=== PATIENT | female | born 1950 | race African-American/Black ===

== ENCOUNTER 2017-04-27 20:41 | Emergency (ER) | payer MEDICARE ==
[~2017-04-27 20:41] MED LIST: ISOVUE-370 76%-LOCM 1 ML ONE
[2017-04-27] MEDS ORDERED: Ketorolac Tromethamine 30 MG/ML VIAL ONE (21:33)
[2017-04-27 21:54] LABS: #Eosinphils 0.1 thou/uL (0.0-0.7); #Monocytes 0.7 thou/uL (0.11-0.59); #Neutrophils 9.1 thou/uL (1.40-6.50); %Basophils 0.3 % (0.0-1.0); %Eosinophils 0.8 % (0.0-10.0); %Lymphocytes 16.5 % (21.0-51.0); %Monocytes 5.7 % (0.0-10.0); Hematocrit 45.4 % (36.0-47.0); Mean Platelet Volume 7.1 fL (7.4-10.4); Red Blood Cell (RBC) Count 4.55 mill/uL (4.20-5.40); White Blood Cell (WBC) Count 11.9 thou/uL (4.8-10.8)
[2017-04-27 22:04] LABS: PTT 26.7 SEC (22.9-36.1); Prothrombin Time 12.6 SEC (12.0-14.7)
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
[2017-04-27 22:12] LABS: Lactic Acid - Sepsis 2.6 mmol/L (0.5-2.2)
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
[2017-04-27 22:15] LABS: ALT (SGPT) 19 U/L (8-55); AST (SGOT) 32 U/L (5-34); Alkaline Phosphatase 95 U/L (40-150); Anion Gap 14 mmol/L (10-20); BUN (Urea Nitrogen) 10 mg/dL (9.8-20.1); Bilirubin, Total 0.5 mg/dL (0.2-1.2); CK (CPK) 244 U/L (29-168); Calc. Creatinine Clearance 0 mL/min (70-130); Calcium 9.9 mg/dL (7.8-10.44); Carbon Dioxide 25 mmol/L (23-31); Chloride 104 mmol/L (98-107); Estimated GFR-MDRD Greater than 90; Globulin 3.7 g/dL (2.4-3.5); Lipase 6 U/L (8-78); Protein, Total 7.7 g/dL (6.0-8.3)
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
== END 2017-04-27 23:12 | disposition home or self-care (01) ==
LOC: ERS 20:41
DX: S20.212A Contusion of left front wall of thorax, initial encounter (principal); S80.11XA Contusion of right lower leg, initial encounter; S50.812A Abrasion of left forearm, initial encounter; E78.5 Hyperlipidemia, unspecified; I10 Essential (primary) hypertension; F32.9 Major depressive disorder, single episode, unspecified; V43.52XA Car driver injured in collision with other type car in traffic accident, initial encounter; W22.11XA Striking against or struck by driver side automobile airbag, initial encounter
CPT/HCPCS: 71010; 71260; 72170; 74177; 80053; 82550; 83605; 83690; 85025; 85610; 85730; 93005; 96374; J1885

== ENCOUNTER 2017-11-10 09:50 | Outpatient (CLI) | payer MEDICARE, OTHER ==
--- NOTE | 2017-11-16 13:12 | MMO ---
BILATERAL SCREENING MAMMOGRAM: INDICATIONS: Annual exam. COMPARISON: 11/25/2015 FINDINGS: The interpretation of this examination was assisted with computer aided detection. The breast parenchyma is heterogeneously dense. There has been interval placement of a pacemaker generator in the upper inner aspect of the left rogelio st, slightly limiting evaluation of the breast parenchyma within this region. There are benign appea ring calcifications bilaterally. No suspicious mass, cluster of microcalcification, or area of architectural distortion is evident. IMPRESSION: BI-RADS Category 2: Benign. Recommend routine annual mammographic screening. POS: [facility]
== END 2017-11-10 09:51 | disposition home or self-care (01) ==
LOC: SCSMAMMO 09:50
PROVIDERS: ATTEND Internal Medicine
DX: Z12.31 Encounter for screening mammogram for malignant neoplasm of breast (principal)
CPT/HCPCS: 77067

== ENCOUNTER 2017-11-18 08:49 | Outpatient (CLI) | payer MEDICARE, OTHER | END 2017-11-18 08:50 | disposition home or self-care (01) | LOC: BICMAMMO 08:49 | PROVIDERS: ATTEND Internal Medicine | DX: Z13.820 Encounter for screening for osteoporosis (principal); N95.9 Unspecified menopausal and perimenopausal disorder; M85.88 Other specified disorders of bone density and structure, other site | CPT/HCPCS: 77080 ==

== ENCOUNTER 2018-04-02 20:30 | Outpatient (CLI) | payer MEDICARE, OTHER | END 2018-04-02 20:31 | disposition home or self-care (01) | LOC: SLEEPLAB 20:30 | PROVIDERS: ATTEND Internal Medicine Cardiovascular Disease | DX: G47.33 Obstructive sleep apnea (adult) (pediatric) (principal) | CPT/HCPCS: 95810 ==

== ENCOUNTER 2018-04-05 09:06 | Emergency (ER) | payer MEDICARE, OTHER ==
[2018-04-05 09:54] LABS: Bilirubin Negative (Negative); Blood, Urine Moderate (Negative); Clarity Slightly Cloudy (Clear); Glucose, Urine (Dipstick) Negative (Negative); Leukocyte Trace (Negative); Nitrite Negative (Negative); Protein, Urine (Dipstick) Negative (Neg-Trace); Specific Gravity, Urine 1.022 (1.002-1.036); Urobilinogen 0.2 mg/dL (0.2-1.0)
[2018-04-05 10:01] LABS: Bacteria/HPF 2+ HPF (None Seen)
== END 2018-04-05 10:13 | disposition home or self-care (01) ==
LOC: SCSER 09:06
DX: N39.0 Urinary tract infection, site not specified (principal); I10 Essential (primary) hypertension; E78.5 Hyperlipidemia, unspecified; Z79.899 Other long term (current) drug therapy
CPT/HCPCS: 36415; 80053; 80061; 81003; 81015; 99283

== ENCOUNTER 2018-05-07 19:30 | Outpatient (CLI) | payer MEDICARE, OTHER | END 2018-05-07 19:31 | disposition home or self-care (01) | LOC: SLEEPLAB 19:30 | PROVIDERS: ATTEND Internal Medicine Cardiovascular Disease | DX: G47.9 Sleep disorder, unspecified (principal); G47.33 Obstructive sleep apnea (adult) (pediatric); R53.83 Other fatigue; I11.0 Hypertensive heart disease with heart failure; I50.9 Heart failure, unspecified; I25.10 Atherosclerotic heart disease of native coronary artery without angina pectoris; R06.83 Snoring; G47.10 Hypersomnia, unspecified; E66.9 Obesity, unspecified; Z68.30 Body mass index [BMI] 30.0-30.9, adult | CPT/HCPCS: 95811 ==

== ENCOUNTER 2019-03-04 13:38 | Emergency (ER) | payer MEDICARE ==
--- NOTE | 2019-03-04 14:54 | RAD ---
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 Bony demineralization. IMPRESSION: Bony demineralization and prominent tricompartment arthrosis and degenerative changes.
--- NOTE | 2019-03-04 16:51 | ULT ---
VENOUS DOPPLER ULTRASOUND OF THE LEFT LOWER EXTREMITY: History: Left lower extremity pain and edema. Technique: Grayscale, color flow, and spectral doppler imaging of the deep venous system of the left lower extremity was performed. FINDINGS: There is good flow, compression, and augmentation within the left common femoral, femoral, deep femor al, popliteal, posterior tibial and greater saphenous veins. IMPRESSION: No evidence of DVT in the left lower extremity. POS: [facility]
== END 2019-03-04 17:01 | disposition home or self-care (01) ==
LOC: ERS 13:38
DX: M25.562 Pain in left knee (principal); E78.5 Hyperlipidemia, unspecified; E78.00 Pure hypercholesterolemia, unspecified; I10 Essential (primary) hypertension; Z79.82 Long term (current) use of aspirin; Z79.899 Other long term (current) drug therapy

== ENCOUNTER 2019-05-22 21:49 | Observation (INO) | payer MEDICARE ==
[~2019-05-22 21:49] MED LIST changes: -ISOVUE-370 76%-LOCM 1 ML ONE; +Iopamidol-370 76% 500 ML 1 ML ONE
--- NOTE | 2019-05-22 22:23 | RAD ---
EXAM: Chest one view: HISTORY: Chest pain COMPARISON: 04/27/2017 FINDINGS: Left ICD Heart size: Within normal limits. Lungs: Clear of acute process. No evidence for confluent pneumonia, pleural effusion, acute edema, or pneumothorax, or other signifi cant acute process. IMPRESSION: No significant acute intrathoracic disease. Stable exam.
[2019-05-22 23:02] LABS: #Eosinphils 2.2 thou/uL (0.0-0.7); #Lymphocytes 1.5 thou/uL (1.20-3.40); #Monocytes 0.9 thou/uL (0.11-0.59); #Neutrophils 5.8 thou/uL (1.40-6.50); %Basophils 0.3 % (0.0-1.0); %Eosinophils 20.8 % (0.0-10.0); %Lymphocytes 14.2 % (21.0-51.0); %Monocytes 8.9 % (0.0-10.0); %Neutrophils 55.9 % (42.0-75.0); Hemoglobin 14.6 g/dL (12.0-16.0); Mean Corpuscular HGB CONC 32.6 g/dL (32.0-36.0); Mean Corpuscular Hemoglobin 33.1 pg (27.0-31.0); Mean Platelet Volume 7.2 fL (7.4-10.4); Platelet Count 199 thou/uL (130-400); RBC Distribution Width 12.8 % (11.5-14.5); White Blood Cell (WBC) Count 10.4 thou/uL (4.8-10.8)
[2019-05-22 23:25] LABS: ALT (SGPT) 14 U/L (8-55); AST (SGOT) 23 U/L (5-34); Albumin 3.9 g/dL (3.4-4.8); Alkaline Phosphatase 94 U/L (40-110); Anion Gap 11 mmol/L (10-20); BUN (Urea Nitrogen) 14 mg/dL (9.8-20.1); Bilirubin, Total 0.4 mg/dL (0.2-1.2); CK (CPK) 118 U/L (29-168); Calc. Creatinine Clearance 0 mL/min (70-130); Calcium 9.5 mg/dL (7.8-10.44); Carbon Dioxide 27 mmol/L (23-31); Chloride 107 mmol/L (98-107); Estimated GFR-MDRD Greater than 90; Globulin 2.6 g/dL (2.4-3.5); Glucose 104 mg/dL (80-115); Lipase 5 U/L (8-78); Potassium 4.2 mmol/L (3.5-5.1); Protein, Total 6.5 g/dL (6.0-8.3); Sodium 141 mmol/L (136-145)
[2019-05-23] MEDS ORDERED: Aspirin Chewable 81 MG TAB ONE (00:04)
[2019-05-23] MEDS ORDERED: Enoxaparin Sodium 40 MG/0.4 ML SYRINGE ONE (01:24)
[2019-05-23] MEDS ORDERED: Enoxaparin Sodium 30 MG/0.3 ML SYRINGE ONE (01:24)
[2019-05-23 02:29] LABS: Troponin I Less than 0.010 ng/mL (< 0.028)
[2019-05-23] MEDS ORDERED: HYDROcodone/Acetaminophen 5/325 mg Tablet PO PRN (05:39)
[2019-05-23] MEDS ORDERED: hydrALAZINE 20 MG/ML VIAL SLOW IVP PRN (05:39)
[2019-05-23] MEDS ORDERED: Morphine 2 MG/ML SYRINGE SLOW IVP PRN (05:39)
[2019-05-23] MEDS ORDERED: Ondansetron PF 4 MG/2 ML Vial IVP PRN (05:39)
[2019-05-23] MEDS ORDERED: Acetaminophen 325 MG TAB PO PRN (05:39)
[2019-05-23 06:11] LABS: Troponin I Less than 0.010 ng/mL (< 0.028)
[2019-05-23] MEDS ORDERED: FLU VACC TS2019-20(65YR UP)/PF 180 MCG/0.5 ML SYRINGE IM ONE (08:15)
--- NOTE | 2019-05-23 08:22 | CT ---
PRELIMINARY REPORT/[facility]/EMERGENCY AFTER HOURS PROCEDURE: PROCEDURE INFORMATION: Exam: CT Angiography Chest With Contrast Exam date and time: 05/23/2019 12:28 AM Age: 68 years old Clinical history: Chest pain; Patient HX: 68 year old female presents to ED C/O intermittent chest pr essure that started around 2100 tonight while laying in bed. Patient reports pain radiates into her n elissa. Reports associated shortness of breath. History of pacemaker and HTN. TECHNIQUE: Imaging protocol: Computed tomographic angiography of the chest with intravenous contrast. 3D rendering: MIP reconstructed images were created and reviewed. COMPARISON: No relevant prior studies available. FINDINGS: Tubes, catheters and devices: A defibrillator device is present, and its leads are in appropriate pos ition. Pulmonary arteries: There are subtle filling defects within the LEFT upper lobe pulmonary arteries ve rsus mixing artifact. Aorta: Unremarkable. No aortic aneurysm. No aortic dissection. Lungs: There is subpleural atelectasis of the dependent portions of the lungs. Pleural space: Unremarkable. No pneumothorax. No pleural effusion. Heart: Unremarkable. No cardiomegaly. No pericardial effusion. Lymph nodes: Unremarkable. No enlarged lymph nodes. Bones/joints: Unremarkable. No acute fracture. Soft tissues: Unremarkable. IMPRESSION: There are subtle filling defects within the LEFT upper lobe pulmonary arteries versus mixing artifact . Acute pulmonary emboli are not excluded. Thank you for allowing us to participate in the care of your patient. Dictated and Authenticated by: Jose J Bear MD 05/23/2019 12:56 AM Central Time ([place] & [place]) FINAL REPORT CT ANGIOGRAM OF THE CHEST: HISTORY: Intermittent chest pain. COMPARISON: None. TECHNIQUE: CT angiogram of the chest was performed in the axial plane. Three-dimensional reformatted images are submitted for interpretation. FINDINGS: This report is in agreement with the preliminary report by [facility]. There is an intermittent filling de fect involving a segmental branch of the left upper lobe. Proximally, there is contrast opacificatio n, absent contrast opacification in the mid portion and distal segmental/subsegmental branch demonstr ates contrast opacification. Findings may represent artifact. Definite acute PE cannot be excluded. There is cardiomegaly. Upper abdomen is unremarkable. Not reported on the preliminary report by [facility] is extensive bilateral axillary lymphadenopathy which is nonspecific. IMPRESSION: 1. Questionable artifact resulting in filling defect involving a segmental branch of the left upper lobe. Thrombus cannot be entirely excluded but is less favored. 2. Enlarged bilateral axillary lymph nodes, nonspecific. Correlate clinically. Lymphadenopathy was not discussed in the initial report by preliminary by [facility]. 3. Consider additional imaging and possible biopsy sample of the lymph nodes if clinically warranted . CODE T POS: [facility]
--- NOTE | 2019-05-23 09:17 | HP ---
PRESENTING COMPLAINT: Left-sided chest pain. HISTORY OF PRESENT ILLNESS: This is a 68-year-old female with past medical history of cardiomyopathy, status post AICD, hypertension, who presented because of substernal chest pain. Onset was earlier this evening. She describes pain as more like sharp, nonradiating. There was no associated nausea or vomiting. She admits to some cough, which appeared to have worsened after she arrived in the emergency room. She denies any history of similar pain in the past. She denies any cardiac intervention in the past. On arrival in the ED, she had a CTA done with findings of possible right upper lobe pulmonary embolism, which cannot be ruled out. The patient is being admitted for observation. She has been given Lovenox and aspirin. Initial cardiac enzymes were negative. The patient feels comfortable now. Pain has resolved. She denies any shortness of breath. PAST MEDICAL HISTORY: History of cardiomyopathy, history of cardiac ablation in the past, history of AICD placement, and history of hypertension. The patient denies history of diabetes, but was seen on a previous record. History of dyslipidemia. PAST SURGICAL HISTORY: Breast biopsy, partial hysterectomy, and AICD placement. ALLERGIES: SULFA DRUGS, WHICH GIVES HER HIVES. HOME MEDICATIONS: Reviewed. See MAR. FAMILY HISTORY: Noncontributory. The patient denies history of PE or DVT. SOCIAL HISTORY: She resides in a community. She is a lifelong nonsmoker. No history of alcohol or illicit drug use. REVIEW OF SYSTEMS: All system reviewed, x14 was negative. PHYSICAL EXAMINATION: VITAL SIGNS: Current vitals; blood pressure of 120/51, pulse of 78, respiratory rate of 18, and O2 saturation is 98% on room air. Temperature afebrile. GENERAL: Calm, middle-aged female, lying in bed, not in any distress on room air. HEENT: Head is atraumatic and normocephalic. Pupils are equal and reactive to light. Extraocular motor movement intact. NECK: No JVD. No carotid bruit. RESPIRATORY: Good air entry bilaterally. No crepitation. CARDIOVASCULAR: S1-S2. Rate and rhythm regular. AICD in situ. Anterior chest wall keloid noted. No elicitable chest wall tenderness. ABDOMEN: Full, soft, and nontender. Bowel sounds positive. EXTREMITIES: No calf tenderness. No pitting edema. NEUROLOGIC: The patient is alert and oriented. No neurological focal motor deficit. LABORATORY DATA: WBC 10.4, platelet 199, and hemoglobin 14. D-dimer 5.2. Sodium 141, potassium 4.2, BUN 14, and creatinine 0.7. AST, ALT, and alkaline phosphatase are normal. Creatine kinase 118. Troponin I less than 0.01. BNP 12.5. Lipase 5. IMAGING STUDIES: Chest x-ray shows no acute intrathoracic abnormality. Thoracic CTA official read pending. Preliminary report of poor visualization of the small vessels of the lungs with possible left upper lobe embolism cannot be ruled out. EKG shows normal sinus rhythm, no ST-segment changes, diffuse T-wave inversion, unchanged from previous. IMPRESSION: 1. Possible left lobe pulmonary embolism. 2. Atypical chest pain-resolved. 3. History of cardiomyopathy. 4. Hypertension-controlled. PLAN: 1. We will admit the patient to observation. We will start the patient on Lovenox q.12 hours 1 mg/kg. However, we consider reviewing CT scan with radiologist in a.m. The patient may be able to transition to Eliquis at discharge. 2. Hypertension-controlled. Continue home regimen. 3. DVT prophylaxis-follow therapeutic dose of anticoagulant. 4. History of cardiomyopathy-stable. Follow troponin trend. 5. Advanced directives, the patient is full code. Total time spent in discussion with patient, evaluation of record, discussion with ED physician, greater than 60 minutes. Job ID: [id number]
[2019-05-23] MEDS: Carvedilol 25 MG TAB PO SCH ×2 (09:48→22:24)
[2019-05-23] MEDS: Aspirin 81 mg Enteric Coated Tablet PO SCH (09:48)
[2019-05-23] MEDS: Famotidine 20 MG TAB PO SCH ×2 (09:49→21:18)
[2019-05-23] MEDS: Enoxaparin Sodium 60 MG/0.6 ML SYRINGE SC SCH ×2 (09:49→21:18)
[2019-05-23] MEDS: Lisinopril/Hydrochlorothiazide 10 mg/12.5 mg Tablet PO SCH (09:50)
--- NOTE | 2019-05-23 11:01 | PDOC.HOSPP ---
- Subjective Encounter Date: 05/23/19 Encounter Time: 10:59 Subjective: Ms. Blanca was seen today in follow-up of chest pain and bilateral foot pain. When I went in to see her she was having a severe episode of pain and cramping in her left foot. She denies feeling short of breath. She admits to about a 14 pound weight loss in the past few months. - Objective Vital Signs & Weight: Vital Signs (12 hours) Temp Pulse Resp BP BP Pulse Ox 05/23/19 08:02 98.0 F 72 16 145/61 H 05/23/19 04:25 97.9 F 83 16 138/66 99 Result Diagrams: 05/22/19 22:53 05/22/19 22:53 Hospitalist ROS - Medication Medications: Active Medications Generic Name Dose Route Start Last Admin Trade Name Freq PRN Reason Stop Dose Admin Aspirin 81 mg 05/23/19 09:00 05/23/19 09:48 Ecotrin PO 81 mg DAILY GALO Administration Carvedilol 12.5 mg 05/23/19 09:00 05/23/19 09:48 Coreg PO 12.5 mg BID GALO Administration Enoxaparin Sodium 60 mg 05/23/19 09:00 05/23/19 09:49 Lovenox SC 60 mg 0900,2100 GALO Administration Famotidine 20 mg 05/23/19 09:00 05/23/19 09:49 Pepcid PO 20 mg BID GALO Administration Lisinopril/HCTZ 1 tab 05/23/19 09:00 05/23/19 09:50 Prinizide 10-12.5 PO 1 tab DAILY GALO Administration Sodium Chloride 10 ml 05/23/19 09:00 05/23/19 09:50 Flush - Normal Saline IVF 10 ml Q12HR GALO Administration - Exam Eye: PERRL Heart: RRR, no murmur, no gallops, no rubs, normal peripheral pulses Respiratory: CTAB, no wheezes, no rales, no ronchi, normal chest expansion Gastrointestinal: soft, non-tender, non-distended, normal bowel sounds Extremities: 1+ LE edema (bilateral edema, left > right,) Skin: normal turgor (mildly erythematous and raised rash over her legs, and upper extremities, and torso, which is a bit nodular, and pruitic) Psychiatric: normal affect, normal behavior, A&O x 3 Hosp A/P (1) Pulmonary embolus Code(s): I26.99 - OTHER PULMONARY EMBOLISM WITHOUT ACUTE COR PULMONALE Status : Acute (2) Hypertension Code(s): I10 - ESSENTIAL (PRIMARY) HYPERTENSION Status: Acute (3) Chronic systolic heart failure Code(s): I50.22 - CHRONIC SYSTOLIC (CONGESTIVE) HEART FAILURE Status: Acute (4) Rash Code(s): R21 - RASH AND OTHER NONSPECIFIC SKIN ERUPTION Status: Chronic - Plan * Acute PE- will consult Animal Damage Control Agent to solidify the diagnosis * Concerning is the weight loss, and rash- ? etiology- will screen for SLE, and consider other possiblities such as Sarcoidosis, lymphoma ect. * Chronic systolic heart failure- compensated- will re-start her home medications * HTN-blood pressure is stable
[2019-05-23 11:14] VITALS: BMI 28.7
--- NOTE | 2019-05-23 20:30 | CON ---
DATE OF CONSULTATION: 05/23/2019 SERVICE: Pulmonary Medicine. REASON FOR CONSULTATION: Possible pulmonary embolism. HISTORY OF PRESENT ILLNESS: The patient is a 68-year-old female with past medical history significant for absolutely nothing. She presented to the hospital because of an abrupt onset of chest discomfort she describes as a pressure. She also had associated shortness of breath. This has followed a weird sensation that she had in her left leg. She had some sort of a cramping sensation and her left toe susana up. Around the time that the leg got more comfortable, the chest discomfort started. It lasted for about 1 minute. Then, it went away for about 10 to 15 minutes. It kept coming back and going away and coming back and going away at the similar intervals. Ultimately, it got severe enough that she presented to the emergency department after the second or third round of this. At that location , it happened several more times, but ultimately, she was given a couple of doses of aspirin. Since she has had these aspirins, she has not had any additional discomforts associated with that. This morning, because of ongoing leg discomfort which is going from the right leg to the left leg, she ended up getting a pain medication. This has elicited some nausea, but prior to that medication, she has not had any nausea. She denies any fevers or chills. She is not having any cough, sputum production, abdominal pain, diarrhea, or constipation. PAST MEDICAL HISTORY: 1. Chronic systolic heart failure with AICD in place. 2. Dyslipidemia. 3. Hypertension. PAST SURGICAL HISTORY: 1. Breast biopsy. 2. Hysterectomy, partial. 3. AICD placement. ALLERGIES: SULFA GIVES HER HIVES. MEDICATIONS: List of her inpatient medications was reviewed. No specific updates were made at this time. FAMILY HISTORY: Noncontributory. SOCIAL HISTORY: She is a lifelong nonsmoker. She denies any alcohol or illicit drugs. She has no exposure to chemicals, dust, asbestos, or tuberculosis. REVIEW OF SYSTEMS: General; head, ears, eyes, nose, throat; cardiovascular; respiratory; GI; ; musculoskeletal; neurologic; and skin are negative except as mentioned in the HPI. PHYSICAL EXAMINATION: VITAL SIGNS: Afebrile, pulse 84, blood pressure 120/58, respirations 16, saturation 100% on room air. GENERAL: The patient is awake and alert, in no apparent distress. LUNGS: Decent air entry. No prolonged expiratory phase, wheezing, rhonchi, or crackles are appreciated. HEART: Normal rate. Regular. ABDOMEN: Soft, nontender, and nondistended. Bowel sounds are positive. MUSCULOSKELETAL: No cyanosis or clubbing. No pitting in the bilateral lower extremities. NEUROLOGIC: Grossly nonfocal. LABORATORY DATA: WBC 10.4, hemoglobin 14.6, platelets 199,000. D-dimer 5.21. Basic metabolic profile and liver function studies are unremarkable. Troponin is negative x3. BNP is 12.5. IMAGING STUDIES: CT of the chest demonstrates some filling deficits that are located throughout bilateral lung isaacs. The read indicates that it is only in the left upper lobe, but in truth, it is left upper lobe, left lower lobe, right upper lobe, right middle lobe, and right lower lobe. At about the same level, the same deficit exists. Chest x-ray demonstrates no acute cardiopulmonary abnormality. Ultrasound of the bilateral lower extremities is currently pending. ASSESSMENT: 1. Abnormal CT of the chest with filling deficits at the same level throughout bilateral lung isaacs. 2. Chest pain, noncardiogenic. DISCUSSION AND PLAN: Her chest pain is most characteristic of a hollow viscus pain pattern. It is unlikely to be of cardiac origin. The abnormal CT of the chest is not consistent with pulmonary emboli. This filling deficit is not just limited to the left upper lobe. It is left upper lobe, left lower lobe, right upper lobe and middle lobe, and right lower lobe. At the same level throughout all vasculature , there is a minimal filling deficit. This is consistent with a transient interruption in contrast administration. I would not commit her to anticoagulation on the basis of this study. Ultrasound of the bilateral lower extremities is currently pending. Dr. Vazquez will assume care in the morning as he has an established relationship with Blanca. Please call with additional questions or concerns through time. 70 minutes have been devoted to this patient in various activities. I personally reviewed all imaging studies and laboratory data noted within this document. For fifty percent of this time, I was interacting with the patient at the bedside or coordinating care with the care team. For the remainder of the time I was immediately available to the patient in the hospital unit. Job ID: [id number] [facility]
[2019-05-23] MEDS ORDERED: Latanoprost 0.005% Ophth Soln 2.5 ml Bottle EA EYE SCH (21:00)
[2019-05-23] MEDS ORDERED: Pravastatin Sodium 40 MG TAB PO SCH (21:00)
[2019-05-24 04:54] LABS: #Eosinphils 2.2 thou/uL (0.0-0.7); #Lymphocytes 2.3 thou/uL (1.20-3.40); #Monocytes 0.4 thou/uL (0.11-0.59); #Neutrophils 4.4 thou/uL (1.40-6.50); %Eosinophils 23.7 % (0.0-10.0); %Lymphocytes 24.5 % (21.0-51.0); %Monocytes 4.5 % (0.0-10.0); %Neutrophils 47.3 % (42.0-75.0); Hemoglobin 14.2 g/dL (12.0-16.0); Mean Corpuscular HGB CONC 32.4 g/dL (32.0-36.0); Mean Corpuscular Hemoglobin 32.7 pg (27.0-31.0); Mean Platelet Volume 7.4 fL (7.4-10.4); Platelet Count 224 thou/uL (130-400); Red Blood Cell (RBC) Count 4.35 mill/uL (4.20-5.40); White Blood Cell (WBC) Count 9.4 thou/uL (4.8-10.8)
[2019-05-24 05:02] LABS: Anion Gap 13 mmol/L (10-20); BUN (Urea Nitrogen) 15 mg/dL (9.8-20.1); Calc. Creatinine Clearance 70 mL/min (70-130); Calcium 9.3 mg/dL (7.8-10.44); Carbon Dioxide 24 mmol/L (23-31); Chloride 107 mmol/L (98-107); Estimated GFR-MDRD 86; Glucose 103 mg/dL (80-115); Sodium 140 mmol/L (136-145)
[2019-05-24 05:06] LABS: Troponin I Less than 0.010 ng/mL (< 0.028)
--- NOTE | 2019-05-24 09:11 | ULT ---
BILATERAL LOWER EXTREMITY VENOUS DOPPLER ULTRASOUND: Date: 05/24/19 HISTORY: Bilateral leg pain. TECHNIQUE: Amaral scale ultrasound with color flow and spectral Doppler imaging of the deep venous systems of the lower extremities was performed bilaterally. FINDINGS: There is good flow, compression, and augmentation noted in the common femoral, femoral, deep femoral, popliteal, posterior tibial, and greater saphenous veins on either side. IMPRESSION: No evidence of deep venous thrombosis in either lower extremity. POS: [facility]
[2019-05-24] MEDS: Carvedilol 25 MG TAB PO SCH (09:20)
[2019-05-24] MEDS: Aspirin 81 mg Enteric Coated Tablet PO SCH (09:20)
[2019-05-24] MEDS: Lisinopril/Hydrochlorothiazide 10 mg/12.5 mg Tablet PO SCH (09:22)
[2019-05-24] MEDS: Enoxaparin Sodium 60 MG/0.6 ML SYRINGE SC SCH (09:22)
[2019-05-24] MEDS: Famotidine 20 MG TAB PO SCH (09:22)
--- NOTE | 2019-05-24 10:29 | PRG ---
DATE OF SERVICE: 05/24/2019 SUBJECTIVE: Ms. Pavithra Blanca has no complaints other than pruritus. She believes that she was started on spironolactone and developed this diffuse macular rash. She has had no more leg cramping episodes and no more chest discomfort. When she came in, she says she had chest discomfort that was radiating up into her neck. She says she feels well now and wants to go home. She is scheduled for a sleep study, but missed the appointment because of this pruritic rash. OBJECTIVE: LUNGS: Clear. VITAL SIGNS: She is afebrile. Heart rates in the 60s, respiratory rates in the teens, oximetry is 98, and blood pressure 108/58. IMPRESSION AND PLAN: 1. Chest discomfort radiating into her neck of unclear etiology. 2. History of systolic cardiomyopathy with a defibrillator in place. 3. Macular pruritic diffuse rash ? Hypersensitivity to Aldactone. I have never seen a reaction to Aldactone, but I am sure this is possible. Discussion might be entertained with her pediatric anesthesiologist to see if it would be reasonable to stop the spironolactone. Reviewing her medications here, I do not see that this was started. For followup, I will see her in the office after her sleep study. Job ID: [id number]
--- NOTE | 2019-05-24 11:18 | PDOC.HOSPP ---
- Subjective Encounter Date: 05/24/19 Encounter Time: 11:16 Subjective: Ms. Blanca was seen today in follow-up of chest pain and dyspnea. She does not have any complaints today. - Objective Vital Signs & Weight: Vital Signs (12 hours) Temp Pulse Resp BP Pulse Ox 05/24/19 09:12 97.8 F 69 18 108/58 L 99 05/24/19 03:15 98.9 F 98 18 99/51 L 98 05/24/19 01:06 98.3 F 70 18 96/52 L 99 Weight Weight 148 lb 8 oz I&O: 05/23/19 05/24/19 05/25/19 06:59 06:59 06:59 Intake Total 894 500 Output Total 250 300 Balance 644 200 Result Diagrams: 05/24/19 04:35 05/24/19 04:35 Hospitalist ROS - Medication Medications: Active Medications Generic Name Dose Route Start Last Admin Trade Name Freq PRN Reason Stop Dose Admin Acetaminophen 650 mg 05/23/19 05:39 05/23/19 18:19 Tylenol PO 650 mg Q4H PRN Administration Headache/Fever/Mild Pain (1-3) Hydrocodone Bitart/Acetaminophen 1 tab 05/23/19 05:39 05/23/19 11:56 [place] 5/325 PO 1 tab Q4H PRN Administration Moderate Pain (4-6) Aspirin 81 mg 05/23/19 09:00 05/24/19 09:20 Ecotrin PO 81 mg DAILY GALO Administration Carvedilol 12.5 mg 05/23/19 09:00 05/24/19 09:20 Coreg PO 12.5 mg BID GALO Administration Enoxaparin Sodium 60 mg 05/23/19 09:00 05/24/19 09:22 Lovenox SC 60 mg 0900,2100 GALO Administration Famotidine 20 mg 05/23/19 09:00 05/24/19 09:22 Pepcid PO 20 mg BID GALO Administration Lisinopril/HCTZ 1 tab 05/23/19 09:00 05/24/19 09:22 Prinizide 10-12.5 PO 1 tab DAILY GALO Administration Latanoprost 1 drop 05/23/19 21:00 05/23/19 21:18 Xalatan 0.005% Ophth Soln EA EYE 1 drop HS GALO Administration Pravastatin Sodium 80 mg 05/23/19 21:00 05/23/19 21:18 Pravachol PO 80 mg HS GALO Administration Sodium Chloride 10 ml 05/23/19 09:00 05/24/19 09:22 Flush - Normal Saline IVF 10 ml Q12HR GALO Administration - Exam Eye: PERRL Heart: RRR, no murmur, no gallops, no rubs, normal peripheral pulses Respiratory: CTAB, no wheezes, no rales, no ronchi, normal chest expansion, no tachypnea, normal percussion Gastrointestinal: soft, non-tender, non-distended, normal bowel sounds, no palpable masses, no hepatomegaly, no splenomegaly Extremities: no cyanosis Hosp A/P (1) Pulmonary embolus Code(s): I26.99 - OTHER PULMONARY EMBOLISM WITHOUT ACUTE COR PULMONALE Status : Acute (2) Hypertension Code(s): I10 - ESSENTIAL (PRIMARY) HYPERTENSION Status: Acute (3) Chronic systolic heart failure Code(s): I50.22 - CHRONIC SYSTOLIC (CONGESTIVE) HEART FAILURE Status: Acute (4) Rash Code(s): R21 - RASH AND OTHER NONSPECIFIC SKIN ERUPTION Status: Chronic - Plan * Acute PE- this has been ruled out. Lower extremity venous dopplers were negative for DVT * Arterial dopplers did not demonstrate any significant insufficiency * Rash may be related to Spironolactone * Stable for discharge home
[2019-05-24 13:26] VITALS: BP 100/50; TEMP 97.9
[2019-05-25 13:47] LABS: ANA Symphony (Qualitative) Negative (Negative); ANA Symphony (Quantitative) 0.1 Ratio (< 0.7 Negative)
--- NOTE | 2019-05-25 23:33 | ULT ---
LOWER EXTREMITY ARTERIAL EVALUATION USING DOPPLER WAVEFORM ANALYSIS AND SEGMENTAL LIMB PRESSURES 05/23/19 Examination of the lower extremities reveals normal triphasic signals bilaterally with ankle-arm inde x of about 1.3 bilaterally. Toe-brachial index could not be obtained due to pressure myography not fu nctioning on her toes. This would be considered a normal resting arterial study of the lower extremities and would not be co nsistent with any significant vascular claudication or wound healing impairment.
== END 2019-05-24 13:30 | disposition home or self-care (01) ==
LOC: ERS 21:49 → 2NO 05-23 00:43 → OBSVTOIN 05-23 04:38 → UNDOADMOB 05-23 04:38 → 2NO 05-23 04:38 → INTOOBSV 05-23 04:38
PROVIDERS: ADMIT Internal Medicine; ATTEND Internal Medicine
DX: R07.89 Other chest pain (principal); I11.0 Hypertensive heart disease with heart failure; I50.23 Acute on chronic systolic (congestive) heart failure; I42.9 Cardiomyopathy, unspecified; E78.5 Hyperlipidemia, unspecified; R21 Rash and other nonspecific skin eruption; F12.10 Cannabis abuse, uncomplicated; Z79.82 Long term (current) use of aspirin; Z79.899 Other long term (current) drug therapy; Z88.2 Allergy status to sulfonamides; Z95.810 Presence of automatic (implantable) cardiac defibrillator
CPT/HCPCS: 71045; 71275; 80048; 80053; 82550; 83690; 83735; 83880; 84484 ×4; 85025 ×2; 85379; 86038; 86225; 93005; 93923; 93970; 99285; G0378; 36415; J1650; Q9967

== ENCOUNTER 2019-07-10 15:11 | Outpatient (CLI) | payer MEDICARE ==
--- NOTE | 2019-07-10 16:08 | MMO ---
Bilateral MAMMO Bilat Screen [facility]. CLINICAL HISTORY: Patient is 69 years old and is seen for screening. The patient has the following family history of breast cancer: daughter, at age 38, malignant (generic). The patient has no personal history of cancer. The patient has a history of left Excisional Biopsy in 1968 - negative and left Excisional Biopsy in 1997 - negative. VIEWS: The views performed were: bilateral craniocaudal with tomosynthesis; bilateral mediolateral oblique with tomosynthesis; and left mediolateral oblique. FILMS COMPARED: The present examination has been compared to prior imaging studies performed at [facility] on 11/10/2017, at [facility] on 11/25/2015, and at [facility] on 11/06/2014 and 11/25/2015. This study has been interpreted with the assistance of computer-aided detection. MAMMOGRAM FINDINGS: There are scattered fibroglandular densities. Benign calcifications are noted. There are stable post-operative changes. There are no suspicious masses, suspicious calcifications, or new areas of architectural distortion. IMPRESSION: THERE IS NO MAMMOGRAPHIC EVIDENCE OF MALIGNANCY. A ROUTINE FOLLOW-UP MAMMOGRAM IN 1 YEAR IS RECOMMENDED. THE RESULTS OF THIS EXAM WERE SENT TO THE PATIENT. ACR BI-RADS Category 2 - Benign finding MAMMOGRAPHY NOTE: 1. A negative mammogram report should not delay a biopsy if a dominant of clinically suspicious mass is present. 2. Approximately 10% to 15% of breast cancers are not detected by mammography. 3. Adenosis and dense breasts may obscure an underlying neoplasm. Reported by: KETURAH AMEZCUA MD Electonically Signed: [id number]
== END 2019-07-10 15:12 | disposition home or self-care (01) ==
LOC: BICMAMMO 15:11
PROVIDERS: ATTEND Family Medicine
DX: Z12.31 Encounter for screening mammogram for malignant neoplasm of breast (principal); Z80.3 Family history of malignant neoplasm of breast
CPT/HCPCS: 77063; 77067

== ENCOUNTER 2023-07-27 10:46 | Outpatient (CLI) | payer OTHER | END 2023-07-27 10:47 | disposition home or self-care (01) | LOC: BICMAMMO 10:46 | PROVIDERS: ATTEND Nurse Practitioner Family | DX: Z12.31 Encounter for screening mammogram for malignant neoplasm of breast (principal); Z80.3 Family history of malignant neoplasm of breast | CPT/HCPCS: 77063; 77067 ==

== ENCOUNTER 2024-08-24 12:27 | Outpatient (CLI) | payer OTHER | END 2024-08-24 12:28 | disposition home or self-care (01) | LOC: BICMAMMO 12:27 | PROVIDERS: ATTEND Family Medicine | DX: Z12.31 Encounter for screening mammogram for malignant neoplasm of breast (principal); Z80.3 Family history of malignant neoplasm of breast; Z91.89 Other specified personal risk factors, not elsewhere classified | CPT/HCPCS: 77063; 77067 ==